=== PATIENT | female | born 1970 | race Caucasian/White ===

== ENCOUNTER 2016-09-24 14:57 | Emergency (ER) | payer MEDICAID ==
--- NOTE | ~2016-09-24 | ER ---
PATIENT'S NAME: PARESH BENSON [facility] AGE: 46 Y [address] ROOM: [place] [address] LOCATION: [facility] ADMIT DATE: 09/24/2016 ER/Outpatient Report DISCHARGE DATE: 09/24/2016 FAMILY PHYSICIAN: PHYSICIAN, NO ATTENDING PHYSICIAN: Lucas Riggs CHIEF COMPLAINT: Shortness of breath and leg swelling. TIME OF ARRIVAL: 1457 hours. TIME OF EVALUATION: 1510 hours. HISTORY OF PRESENT ILLNESS: This is a 46-year-old female, who presents to the ER with her mother and daughter who states that she traveled from [place] to [place] and drove here in about approximately 26 hours. She arrived in [place] on Wednesday and had been doing fine until yesterday. She states that she noticed some swelling in her lower extremities and she states that she had 5+ pitting edema to both of her legs. She states that she has been feeling short of breath as well and so she increased her blood pressure medication with the hydrochlorothiazide and that up to 3 times a day from her usual one time a day dose. She states that she has been trying to elevate her legs and the swelling has improved. She has not been running any fevers at home. She states that she has a little bit of a dry cough. No fever or chills. No discomfort or pain with deep inspiration. She states that she has chronic pain syndrome and she has been off her Lyrica for approximately since June. She states that she has no heart palpitations and no chest pain. MEDICATIONS: Please see medication list nurse's notes. PAST MEDICAL HISTORY: 1. Complex regional pain syndrome. 2. Asthma. PAST SURGICAL HISTORY: Shoulder surgery and oral cancer. SOCIAL HISTORY: Denies smoking, drug, or alcohol use. REVIEW OF SYSTEMS: PATIENT'S NAME: PARESH BENSON [facility] AGE: 46 Y [address] ROOM: [place] [address] LOCATION: [facility] ADMIT DATE: 09/24/2016 ER/Outpatient Report DISCHARGE DATE: 09/24/2016 FAMILY PHYSICIAN: PHYSICIAN, NO ATTENDING PHYSICIAN: Lucas Riggs A 10-point review of systems completed and was negative with the exception of those discussed in the HPI. PHYSICAL EXAMINATION: VITAL SIGNS: Height 5 feet 9 inches stated. Weight 85.3 kg taken. Blood pressure is 134/91, pulse 129, respirations 16, temperature 98.3 degrees tympanically, and saturations 96% on room air. Rafaela Coma Score is 15. GENERAL: An alert, slightly anxious appearing female, in no acute distress. HEENT. Head normocephalic. Eyes, pupils are equal and reactive to light. She does display moist mucous membranes. LUNGS: Clear to auscultation bilaterally. No wheezes or crackles. HEART: Tachycardia. No murmurs noted. ABDOMEN: Soft, it is nontender. She has good bowel sounds throughout. No masses are palpated. EXTREMITIES: She has no pitting edema. No erythema. No tenderness with palpation to her lower extremities. NEURO: Cranial nerves 2 through 12 grossly intact. Gait is steady without assistance. LABORATORY DATA: CBC: White count is 11.9, hemoglobin is 14.6, and platelets 395. INR is 0.94. CMS: Potassium of 3.6 otherwise unremarkable. Magnesium is 2.0. CPK is 50. CK-MB is less than 0.5. Troponin I is less than 0.040. Pro BMP is less than 30. D-dimer was normal at 0.34. EKG shows sinus tachycardia. Chest x-ray was negative for any inflammation. No pneumonia seen. IMPRESSION: 1. Bilateral leg swelling that has resolved. 2. Sensation of feeling short of breath. PLAN: We did monitor the patient here for quite some time. The patient remained stable and in no distress. I did go over her labs with her. She has no further questions. She is agreeable with going home. I advised her on her trip back she needs to take more frequent breaks and get out of the car and walk several times during the trip back to [place]. The patient and the patient's mother understand and agrees with care. SIERRA CASTANON PA-C FOR MD BETH STERN/sophie PATIENT'S NAME: PARESH BENSON [facility] AGE: 46 Y [address] ROOM: [place], [place] [address] LOCATION: [facility] ADMIT DATE: 09/24/2016 ER/Outpatient Report DISCHARGE DATE: 09/24/2016 FAMILY PHYSICIAN: NICK HUTCHISON ATTENDING PHYSICIAN: Lucas Riggs /[id number] d: 09/24/16 2356 t: 10/06/16 1732, OUTPATIENT REPORT
[2016-09-24 15:53] LABS: BASOPHIL # 0.1 K/uL (0.0-0.2); BASOPHIL % 0.6 %; EOSINOPHIL # 0.2 K/uL (0.0-0.5); EOSINOPHIL % 1.3 %; HEMATOCRIT 42.7 % (33.0-46.0); HEMOGLOBIN 14.6 g/dL (10.0-15.0); IMMATURE GRANULOCYTE # 0.1 K/uL (0.0-0.3); IMMATURE GRANULOCYTE % 0.8 %; LYMPHOCYTE # 3.6 K/uL (0.8-4.0); LYMPHOCYTE % 30.4 %; MCH 30.5 pg (27.0-34.0); MCHC 34.2 gm/dL (32.0-36.5); MCV 89.3 fl (83.0-98.0); MONOCYTE # 0.7 K/uL (0.0-1.0); MONOCYTE % 5.7 %; MPV 9.2 fl (9.4-12.4); NEUTROPHIL # (ANC) 7.3 K/uL (1.8-7.8); NEUTROPHIL % 61.2 %; NRBC % 0 /100WBC (0-0.00); PLATELET COUNT 395 K/uL (150-450); RBC 4.78 M/uL (3.50-5.50); RDW-CV 12.5 % (11.9-14.6); WBC 11.9 K/uL (4.0-11.0)
[2016-09-24 16:03] LABS: INR - (THERAPEUTIC) 0.94 (0.92-1.07); PROTIME 9.9 SECONDS (9.8-11.4); PTT 30 SECONDS (25-32)
[2016-09-24 16:13] LABS: ALBUMIN 4.2 gm/dL (3.5-5.0); ALK PHOS 78 IU/L (33-138); ALT 29 IU/L (12-78); ANION GAP 15.6 (10.0-19.0); AST 19 IU/L (10-40); BLOOD UREA NITROGEN 10 mg/dL (6-24); CALCIUM 9.5 mg/dL (8.5-10.5); CHLORIDE 102 mMol/L (96-110); CO2 24 mMol/L (22-32); CPK 50 IU/L (21-215); CREATININE 0.9 mg/dL (0.5-1.1); ESTIMATED GFR (MDRD EQUATION) > 60; POTASSIUM 3.6 mMol/L (3.7-5.1); SODIUM 138 mMol/L (135-145); TOTAL BILIRUBIN 0.4 mg/dL (0.0-1.5); TOTAL PROTEIN 8.3 g/dL (6.0-8.4)
== END 2016-09-24 16:32 | disposition disaster alternative care site (69) ==
LOC: GMED 14:57
PROVIDERS: Physician Assistant Medical
DX: R06.02 Shortness of breath (principal); M79.89 Other specified soft tissue disorders; G89.4 Chronic pain syndrome; J45.909 Unspecified asthma, uncomplicated; Z98.890 Other specified postprocedural states; Z79.899 Other long term (current) drug therapy